=== PATIENT | female | born 1985 | race Hispanic/Latino ===

== ENCOUNTER 2017-05-09 17:05 | Outpatient (CLI) | payer MEDICAID ==
[2017-05-09 17:24] VITALS: BP 127/86
--- NOTE | 2017-05-10 07:43 | Ultrasound Report ---
ULTRASOUND BIOPHYSICAL PROFILE: History: well being, fall during , abdominal trauma Technique: Transabdominal ultrasound with Doppler interrogation. 2 - breathing movements 2 - movements 2 - posture and tone 2 - Qualitative amniotic fluid volume 8 - TOTAL SCORE OF POSSIBLE 8 Heart Rate (bpm) 143
--- NOTE | 2017-05-10 07:47 | Ultrasound Report ---
OB ULTRASOUND History: Decreased movement, fall during , pain, abruption. Technique: Transabdominal ultrasound with Doppler interrogation. Gestation: Single Position: Cephalic Amniotic Fluid: Normal ADDIS = 13.9 cm Placenta: Anterior Placental Grade: 1 Heart Rate: 143 BPM Cervical length: 3.2 cm (Normal > 3 cm) BPD: 9.1 cm = 37 w 0 d HC: 33.4 cm = 38 w 1 d AC: 33.2 cm = 37 w 0 d FL: 7.3 cm = 37 w 2 d HC/AC Ratio: 1.01 Estimated Weight: 3154 grams LMP: Uncertain Clinical age = w d EDC: US Gest. Age = 37 w 2 d EDC: 05/28/17 Impression: Viable single . No evidence for abruption.
== END 2017-05-09 19:30 | disposition left against medical advice (07) ==
LOC: TRG 17:05 → LDOR 17:05 → ED 17:05 → EDSTATUS 18:13 → TRG 18:39
PROVIDERS: ATTEND Obstetrics & Gynecology
DX: Z34.93 Encounter for supervision of normal pregnancy, unspecified, third trimester (principal); Z3A.37 37 weeks gestation of pregnancy
CPT/HCPCS: 76816; 76819